=== PATIENT | male | born 1990 ===

== ENCOUNTER 2017-02-28 14:34 | Day surgery (SDC) | payer BC ==
[~2017-02-28 14:34] MED LIST: Buffered Lidocaine 0.9% SYRIN* 5 ML/SYR SYRINGE INTRADERM ONE; Buffered Lidocaine 0.9% SYRIN* 5 ML/SYR SYRINGE ONE; DiMENhydriNATE IV* 50 MG/ML VIAL IV PUSH PRN; Famotidine IV* 10 MG/ML 2 ML (20 mg) IV ONE; Morphine INJ* 2 MG/ML 1 ML CARPUJECT IV PRN; Ondansetron INJ* 2 MG/ML VIAL IV PRN; PROCHLORPERAZINE INJ 5 MG/ML 2 ML VIAL IV PRN; Scopolamine 1.5 mg* PATCH TRANSDERM PRN; ceFAZolin 2 GM PREMIX (*) 2 GM/50 ML BAG IVPB ONE; fentaNYL* 50 MCG/ML 2 ML VIAL (100 MCG VIAL) IV PRN; oxyCODONE/Acetamin 5/325 MG* TAB PO PRN
--- NOTE | 2017-02-28 14:59 | HP ---
HISTORY AND PHYSICAL: DATE OF PLANNED ADMISSION AND SURGERY: 02/28/17 HISTORY OF PRESENT ILLNESS: Mr. Thomas is a 26-year-old white male who is admitted with left scrotal trauma and left scrotal swelling, and suspected left testicular injury, for left scrotal exploration. I had seen Mr. Thomas back in 2011 because of left varicocele. At that time, he was worked up with a scrotal ultrasound, which confirmed the presence of a moderate-sized varicocele. He had a semen analysis, which showed a concentration of 80 million and 30% motility. He was asymptomatic from the condition and at that time he was advised observation. He did not follow up for that visit. He presented to my office today with a 36-hour history of left testicular trauma. He was playing football and was tackled by another player who hit him in the left groin with his shoulder. He noted immediate left scrotal pain, but was able to continue the game. That evening, he had some pain, but it did not feel severe. In the morning, he woke up with marked swelling, ecchymosis, and pain of the whole left scrotal area. The swelling had progressed and became significantly bothersome and he presented to the office 3 hrs before admission for evaluation. No past history of any inguinal or scrotal trauma or surgery. PAST MEDICAL HISTORY AND SYSTEMS REVIEW: Otherwise negative. He is in very good health. MEDICATIONS: He is on no chronic medications. ALLERGIES: He denies any allergies to medications. PHYSICAL EXAMINATION GENERAL: Pleasant, healthy looking young man who is in moderate discomfort and walking favoring his left side. VITAL SIGNS: Blood pressure 130/80, pulse of 70, temperature 97. LUNGS: Normal. HEART: Normal. ABDOMEN: Normal. EXTERNAL GENITALIA: He is circumcised. There is moderate diffuse swelling of the left hemiscrotum with ecchymosis extending into the perineum and into the right hemiscrotum. There is diffuse enlargement of the left scrotum, and the testis could not be well evaluated due to pain. There is evidence of fluid collection in the upper left hemiscrotum. No inguinal hernias are noted. The Rt testis feels normal. EXTREMITIES: Normal. LABORATORY DATA: The patient had a urinalysis in the office which was negative. Scrotal ultrasound in the office showed a normal right testis with normal blood flow. The left testis measured 5 x 4 cm. It had an irregular texture with multiple low density areas in the testicular parenchyma with the largest measuring about 1 cm consistent with intratesticular hematomas. There was about a 4 cm collection adjacent to the upper pole of the left testis. At that level, the tunica albuginea could not be well visualized, indicating disruption. The globus major of the left epididymis was involved within that collection. There was good blood flow to the rest of the left testis. There was also diffuse thickening of the scrotal wall. IMPRESSION: Left testicular trauma with left hematocele and left testicular injury with probable disruption of the tunica albuginea of the upper pole and small intratesticular hematomas. He also might have bleeding from the left varicocele compounding his symptoms and findings. PLAN: The plan is for urgent left scrotal exploration. The plan will be to evacuate the hematocele, debride any involved testicular tissue and repair the testicular injury. If there is disruption of the epididymis by the hematoma, it will interfere with the fertility potential of that testicle. There is a possibility that a left orchiectomy may need to be performed if surgically indicated. The other option is conservative management with scrotal elevation and ice packs. There is, however, evidence in the literature that conservative management is associated with higher incidence of testicular atrophy. I discussed the above plans and options in detail with Honorio and he wants to proceed with urgent scrotal exploration. All his questions were answered. [id number]/[facility] #: [id number] [facility]
[2017-02-28] MEDS ORDERED: Midazolam* 1 MG/ML 10 ML VIAL (10 MG) ONE (15:02)
[2017-02-28] MEDS ORDERED: KETAMINE HCL* 50 MG/ML 10 ML VIAL ONE (15:02)
[2017-02-28] MEDS ORDERED: fentaNYL* 50 MCG/ML 2 ML VIAL (100 MCG VIAL) ONE (15:02)
[2017-02-28] MEDS ORDERED: Famotidine IV* 10 MG/ML 2 ML (20 mg) ONE (15:09)
[2017-02-28] MEDS ORDERED: Bupivacaine 0.5% SDV PF* 30 ML VIAL ONE (15:29)
[2017-02-28] MEDS ORDERED: Propofol* 10 MG/ML 20 ML BTL IV PUSH ONE (16:15)
[2017-02-28] MEDS ORDERED: PROCHLORPERAZINE INJ 5 MG/ML 2 ML VIAL ONE (16:15)
[2017-02-28] MEDS ORDERED: Ondansetron INJ* 2 MG/ML VIAL ONE (16:15)
[2017-02-28] MEDS ORDERED: Dexamethasone IV* 4 MG/ML 1 ML (4 MG) ONE (16:15)
[2017-02-28] MEDS ORDERED: Lidocaine 2% PF * 5 ML VIAL ONE (16:15)
[2017-02-28] MEDS ORDERED: Morphine INJ* 10 MG/ML 1 ML CARPUJECT ONE (16:35)
[2017-02-28] MEDS ORDERED: Ketorolac INJ* 30 MG/ML 1 ML VIAL ONE (17:09)
[2017-02-28 18:53] VITALS: BP 141/81
--- NOTE | 2017-03-01 03:37 | OP ---
DATE OF OPERATION: 02/28/17 [facility] DATE OF : [birth year] SURGEON: Myron Redman MD ANESTHESIOLOGIST: Dr. Honorio Umana. ANESTHESIA: General. PRE-OP DIAGNOSIS: Traumatic rupture of left testis. POST-OP DIAGNOSIS: Traumatic rupture of left testis. OPERATIVE PROCEDURE: 1. Left scrotal exploration. 2. Debridement and repair of ruptured left testis. INDICATION FOR PROCEDURE: Mr. Thomas is a 26-year-old white male who about 36 hours prior to presentation, sustained a left testicular trauma when he was playing football and was hit in the scrotum by the shoulder of one of the players. He developed acute left testicular pain, but it was not bad enough to stop the game. The next morning, he noticed marked swelling and ecchymosis involving the left hemiscrotum and extending into the right hemiscrotum and the base of the penis. With increasing pain and swelling, he presented to my office today. He was evaluated and had a scrotal ultrasound where the findings were consistent with left testicular rupture. The testicle, however, looked viable with good arterial flow in a good portion of its parenchyma. Because of the above history and findings, the patient is taken to the operating room on an urgent basis for left scrotal exploration. PATHOLOGY: Exam under anesthesia again showed diffuse ecchymosis involving the left hemiscrotum and part of the right hemiscrotum and extending into the perineum and into the base of the penis. There was diffuse thickening of the left scrotal wall. Upon left scrotal exploration, there was a significant degree of thickening and bleeding within the scrotal wall. There was a small hematocele. The testis was ruptured in half and testicular tissue that looked nonviable was extruding from it. There was intratesticular hematoma noted in the upper pole measuring about 1 cm in diameter. Following debridement of the nonviable testicular tissue, there was good bleeding from the residual tissue and the testis looked viable. The epididymis , the vas deferens, the testicular mediastinum, and the spermatic cord looked intact. DESCRIPTION OF PROCEDURE: After successful general anesthesia, the patient was placed in the supine position and prepped and draped for scrotal exploration. A transverse incision was carried in the mid left hemiscrotum and was deepened through the scrotal skin. The scrotal cavity was then entered. The testis was brought out through the incision and the above findings were noted. The extruded nonviable testicular tissue was then debrided down until a good viable and bleeding testicular tissue was noted. The arterial bleeders were controlled with suture ligatures or with coagulation current. The tunica albuginea was then approximated without undue tension and was closed with interrupted sutures of 4-0 Vicryl. The result looked satisfactory and the testicle looked viable. Extensive irrigation with saline was performed. A Winfield drain was left in the scrotal cavity and brought out through the lower aspect of the scrotal cavity through a separate stab wound incision. The testis was then replaced in the scrotal cavity. The tunica vaginalis was not closed. The scrotal incision was closed using running locking suture of 3- 0 Vicryl for the dartos muscle, and the skin was closed using interrupted everting sutures of 4-0 Vicryl. The Julius drain was transfixed to the skin with a Prolene suture. The patient tolerated the procedure well and left the operating room in good condition. The blood loss was less than 25 cc. The specimen was debrided testicular tissue. All the counts were correct. [id number]/[facility] #: [id number] [facility]
[2017-03-03] MEDS ORDERED: Scopolamine PATCH Remove* 1 NOTE MISC PATCH OFF ONE (12:46)
== END 2017-02-28 18:52 | disposition home or self-care (01) ==
LOC: OR 14:34
PROVIDERS: ATTEND Urology
DX: S38.02XA Crushing injury of scrotum and testis, initial encounter (principal); W03.XXXA Other fall on same level due to collision with another person, initial encounter; Y92.321 Football field as the place of occurrence of the external cause
CPT/HCPCS: 88305; J0690; J0780; J1100; J1885; J2250; J2270; J2405; J2704; J3010